=== PATIENT | male | born 1995 | race Two or more races ===

== ENCOUNTER 2019-09-03 12:56 | Inpatient (IN) | payer OTHER ==
[~2019-09-03] VITALS: Ht 177.8 cm; Wt 52.4 kg
[2019-09-03] MEDS ORDERED: SODIUM CHLORIDE FLUSH 10ML SYR IVF ONE (13:30)
--- NOTE | 2019-09-03 13:32 | NUR ---
PT PRESENTING TO ER FROM [facility]RN AFTER 4 DAYS AGO SITTING DOWN THEN SUDDEN LEFT ARM PAIN, OVER NEXT COUPLE DAYS INCREASED SOB AND DRY COUGH. RAD COMPLETED SHOWING PNEUMO ON LEFT SIDE. CONNECTED TO ALL MONITORING, VSS AT THIS TIME. CALL LIGHT WITHIN REACH. MD ASSESSMENT COMPLETED. PLAN TO SEND PT FOR CHEST CATH IN IR TO REEXPAIND LUNG. CALL LIGHT WITHIN REACH
[2019-09-03 13:50] LABS: BASOPHILS # (AUTO) 0.02 x10^3/uL (0-0.1); BASOPHILS % (AUTO) 0 % (0-1); EOSINOPHILS # (AUTO) 0.08 x10^3/uL (0-0.4); EOSINOPHILS % (AUTO) 2 % (1-7); LYMPHOCYTES # (AUTO) 1.25 x10^3/uL (1-3.4); LYMPHOCYTES % (AUTO) 25 % (22-44); MD NO; MEAN CORPUSCULAR HEMOGLOBIN 30.8 pg (27.5-34.5); MEAN CORPUSCULAR HGB CONC 33.7 g/dL (33.2-36.2); MEAN CORPUSCULAR VOLUME 91.3 fL (81-97); MEAN PLATELET VOLUME 6.7 fL (7.4-10.4); MONOCYTES # (AUTO) 0.34 x10^3/uL (0.2-0.8); MONOCYTES % (AUTO) 7 % (2-9); NEUTROPHILS # (AUTO) 3.35 x10^3/uL (1.8-6.8); NEUTROPHILS % (AUTO) 67 % (42-75); PLATELET COUNT 346 x10^3/uL (130-400); RED BLOOD COUNT 5.08 x10^6/uL (4.38-5.82); RED CELL DISTRIBUTION WIDTH 13.4 % (9.4-14.8)
[2019-09-03 13:53] LABS: ALBUMIN 4.4 g/dL (3.4-5.0); ANION GAP 7 mmol/L (5-15); CALCIUM 9.4 mg/dL (8.5-10.1); CHLORIDE 107 mmol/L (98-107); CREATININE 1.04 mg/dL (0.7-1.3)
--- NOTE | 2019-09-03 14:02 | NUR ---
REPORT GIVEN TO IR
[2019-09-03] MEDS ORDERED: FENTANYL PF 100 MCG/2ML ONE (14:05)
[2019-09-03] MEDS ORDERED: FLUMAZENIL 0.1 MG/1 ML, 5ML ONE (14:05)
[2019-09-03] MEDS ORDERED: NALOXONE 1 MG/ML, 2ML ONE (14:05)
[2019-09-03] MEDS ORDERED: MIDAZOLAM 1 MG/ML, 5ML ONE (14:05)
--- NOTE | 2019-09-03 14:10 | NUR ---
CONSENT AND WHO FORM FILLED OUT PRIOR TO PT LEAVING. PARENTS AT BEDSIDE. VSS. CALL LIGHT WITHIN REACH
--- NOTE | 2019-09-03 14:25 | NUR ---
PT TAKEN TO IR
--- NOTE | 2019-09-03 15:10 | NUR ---
PT BACK FROM IR WITH DRAIN IN PLACE. PT STS PAIN HAS INCREASED TO 8/10 AND HARDER TO BREATH. MD TO BE UPDATED
[2019-09-03] MEDS ORDERED: MORPHINE SULFATE 4 MG/ML, 1ML ONE (15:15)
[2019-09-03] MEDS ORDERED: ONDANSETRON 2MG/ML, 2ML ONE (15:15)
[2019-09-03] MEDS: MORPHINE SULFATE 4 MG/ML, 1ML IVPush PRN ×3 (15:24→16:49)
--- NOTE | 2019-09-03 15:25 | NUR ---
PT MEDICATED FOR PAIN
[2019-09-03] MEDS ORDERED: ONDANSETRON 2MG/ML, 2ML IVPush ONE (15:30)
[2019-09-03] MEDS ORDERED: BACLOFEN 10 MG TABLET PO PRN (16:30)
[2019-09-03] MEDS ORDERED: morphine SULFATE 10 MG/ML, 1ML IVPush PRN (16:30)
[2019-09-03] MEDS ORDERED: IBUPROFEN 600 MG TABLET PO PRN (16:30)
[2019-09-03] MEDS ORDERED: HYDROcodone/APAP 5/325 TABLET PO PRN (16:30)
[2019-09-03] MEDS ORDERED: ONDANSETRON 2MG/ML, 2ML IVPush PRN (16:30)
[2019-09-03] MEDS ORDERED: ONDANSETRON ODT 4 MG PO PRN (16:30)
[2019-09-03] MEDS ORDERED: hydrALAzine 20 MG/ML, 1ML IVPush PRN (16:30)
[2019-09-03] MEDS ORDERED: ACETAMINOPHEN 325 MG TABLET PO PRN (16:30)
--- NOTE | 2019-09-03 16:34 | NUR ---
REPORT GIVEN TO RAMON RN, PT READY FOR TRANSPORT UP TO FLOOR
[2019-09-03] MEDS: KETOROLAC 30 MG/1 ML IV PRN (19:34)
[2019-09-03 21:07] VITALS: BP 107/68
[2019-09-04 01:30] VITALS: BP 107/69
[2019-09-04] MEDS: KETOROLAC 30 MG/1 ML IV PRN ×3 (01:44→23:30)
[2019-09-04 08:15] VITALS: BP 105/69
[2019-09-04 13:33] VITALS: BP 100/59
[2019-09-04 20:10] VITALS: BP 108/70
[2019-09-05 02:00] VITALS: BP 120/67
[2019-09-05 06:13] LABS: ALBUMIN 3.7 g/dL (3.4-5.0); ANION GAP 4 mmol/L (5-15); CHLORIDE 110 mmol/L (98-107)
[2019-09-05 06:19] LABS: ALANINE AMINOTRANSFERASE 20 U/L (12-78); ALKALINE PHOSPHATASE 41 U/L (45-117); BILIRUBIN,TOTAL 0.7 mg/dL (0.2-1.0); CREATININE 0.87 mg/dL (0.7-1.3); TOTAL PROTEIN 7.2 g/dL (6.4-8.2)
[2019-09-05 08:00] VITALS: BP 105/72
[2019-09-05 14:00] VITALS: BP 108/74
[2019-09-05 18:54] VITALS: BP 114/73
[2019-09-06 01:09] VITALS: BP 94/59
[2019-09-06 09:18] VITALS: BP 100/67
== END 2019-09-06 14:23 | disposition home or self-care (01) | DRG 200 ==
LOC: ED 15:36 → INTOOBSV 15:37 → EDIP 15:37 → OBSVTOIN 15:37 → ED 15:49 → 3N 16:51 → DCLOUNGE 09-06 14:08
PROVIDERS: ADMIT Internal Medicine; ATTEND Hospitalist
PROC: 0W9B30Z Drainage of Left Pleural Cavity with Drainage Device, Percutaneous Approach (ICD-10-PCS; principal; 2019-09-03)
DX: J93.83 Other pneumothorax (principal); E46 Unspecified protein-calorie malnutrition; Z68.1 Body mass index [BMI] 19.9 or less, adult; J30.81 Allergic rhinitis due to animal (cat) (dog) hair and dander; Z82.5 Family history of asthma and other chronic lower respiratory diseases
CPT/HCPCS: 32557; 36415; 71045; 71046; 80048; 80053; 82040; 82103; 85025; 93005; 93306; 96374; 99156; 99157; G0378; J1885; J2250; J2405; J3010; C1729; C1769; J2270; J2310